=== PATIENT | female | born 1975 | race African-American/Black ===

== ENCOUNTER 2018-08-21 06:05 | Inpatient (IN) ==
[~2018-08-21 06:05] MED LIST: ALVIMOPAN 12 MG CAPSULE ONE; ERTAPENEM 1,000 MG VIAL ONE
[2018-08-21] MEDS ORDERED: LACTATED RINGERS 1,000 ML IV SCH (06:30)
[2018-08-21] MEDS ORDERED: FAMOTIDINE 20 MG TABLET ONE (06:41)
[2018-08-21] MEDS ORDERED: FAMOTIDINE 20 MG TABLET PO STA (06:42)
[2018-08-21] MEDS ORDERED: ALVIMOPAN 12 MG CAPSULE PO ONE (07:00)
[2018-08-21] MEDS ORDERED: TISSUE ADHESIVE 1 EACH APPLICATOR TOP ONE (07:51)
[2018-08-21] MEDS ORDERED: INDOCYANINE GREEN 25 MG VIAL IV ONE (07:51)
[2018-08-21] MEDS ORDERED: ERTAPENEM 1,000 MG in SODIUM CHLORIDE 0.9% 100 ML IV ONE (08:00)
[2018-08-21] MEDS ORDERED: ROPIVACAINE 0.5% 30 ML VIAL ONE (10:53)
[2018-08-21] MEDS ORDERED: SEVOFLURANE 1 UNIT/15 MINUTE INH ONE (11:30)
[2018-08-21] MEDS ORDERED: PROPOFOL 200 MG/20 ML VIAL IV ONE (11:30)
[2018-08-21] MEDS ORDERED: ONDANSETRON 4 MG/2 ML VIAL ONE ×2 (11:31→11:36)
[2018-08-21] MEDS ORDERED: MIDAZOLAM 2 MG/2 ML VIAL ONE (11:31)
[2018-08-21] MEDS ORDERED: ePHEDrine 50 MG/ML AMP ONE (11:31)
[2018-08-21] MEDS ORDERED: METOPROLOL TARTRATE 5 MG/5 ML VIAL IV ONE (11:31)
[2018-08-21] MEDS ORDERED: fentaNYL 100 MCG/2 ML VIAL ONE (11:31)
[2018-08-21] MEDS ORDERED: SUCCINYLCHOLINE 200 MG/10 ML VIAL ONE (11:32)
[2018-08-21] MEDS ORDERED: NEOSTIGMINE 10 MG/10 ML VIAL ONE (11:32)
[2018-08-21] MEDS ORDERED: GLYCOPYRROLATE 0.4 MG/2 ML VIAL ONE (11:32)
[2018-08-21] MEDS ORDERED: ROCURONIUM 100 MG/10 ML VIAL IV ONE (11:32)
[2018-08-21] MEDS ORDERED: LACTATED RINGERS 1,000 ML IV ONE (11:32)
[2018-08-21] MEDS ORDERED: ONDANSETRON 4 MG/2 ML VIAL IV PRN ×2 (11:33→12:13)
[2018-08-21] MEDS ORDERED: HYDROmorphone 2 MG/1 ML VIAL ONE (11:36)
[2018-08-21] MEDS: HYDROmorphone 2 MG/1 ML VIAL IV PRN ×3 (11:38→12:01)
[2018-08-21] MEDS ORDERED: GLUCAGON 1 MG VIAL IM PRN (12:13)
[2018-08-21] MEDS ORDERED: DEXTROSE 50% 25 GM/50 ML SYRINGE IV PRN (12:13)
[2018-08-21] MEDS ORDERED: PROMETHAZINE 25 MG/1 ML VIAL IM PRN (12:13)
[2018-08-21] MEDS ORDERED: HYDROmorphone 2 MG/1 ML VIAL IV PRN (12:13)
[2018-08-21] MEDS: LACTATED RINGERS 1,000 ML IV SCH ×2 (12:29→21:41)
[2018-08-21] MEDS: INSULIN REGULAR 100 UNIT/ML SUBCUT SCH ×3 (12:41→22:19)
[2018-08-21] MEDS ORDERED: KETOROLAC 15 MG/1 ML VIAL IV SCH (13:00)
[2018-08-21 13:02] LABS: Basophils % 0.1 % (0.0-0.8); Eosinophils # 0.1 10*3/uL (0.0-0.87); Eosinophils % 0.6 % (0.00-10.9); Hematocrit 28.8 VOL% (35.7-47.0); Hemoglobin 8.4 GM/DL (12.0-16.0); Immature Granulocytes % 0.7 %; Lymphocytes # 1.5 10*3/uL (1.4-4.0); Lymphocytes % 10.8 % (21.3-54.2); Mean Corpuscular HGB Conc 29.2 GM/DL (32-36); Mean Corpuscular Hemoglobin 24 PG (27-34); Mean Corpuscular Volume 81.6 FL (87-102); Mean Platelet Volume 11.2 FL (9.6-12.0); Monocytes # 0.6 10*3/uL (0.11-0.8); Monocytes % 4.2 % (1.7-12.7); Neutrophils # 11.8 10*3/uL (1.4-7.4); Neutrophils % 83.6 % (38.7-73.9); Platelet Count 332 T/CUMM (130-400); Red Blood Count 3.53 MC/CUMM (3.8-5.5); White Blood Count 14.1 T/CUMM (4-12)
[2018-08-21 13:22] LABS: Band Neutrophils 23 % (0-10); Eosinophils 1 % (0-10); Lymphocytes 12 % (20-55); Platelet Estimate Normal; Segmented Neutrophils 61 % (50-85); Total Cells Counted 100
[2018-08-21 13:23] LABS: Anisocytosis Slight
[2018-08-21 13:25] LABS: Calcium 8.5 MG/DL (8.5-10.1); Osmolality,Calculated 294.4 MOS/KG (273-304); Potassium 4.1 MMOL/L (3.5-5.1)
[2018-08-21] MEDS: GABAPENTIN 100 MG CAPSULE PO SCH ×2 (15:11→21:40)
[2018-08-21] MEDS: ALVIMOPAN 12 MG CAPSULE PO SCH (21:40)
[2018-08-22] MEDS ORDERED: ENOXAPARIN 40 MG/0.4 ML SYRINGE SUBCUT SCH (04:41)
[2018-08-22 05:10] LABS: Basophils % 0.2 % (0.0-0.8); Eosinophils # 0.3 10*3/uL (0.0-0.87); Eosinophils % 2.2 % (0.00-10.9); Hematocrit 23.9 VOL% (35.7-47.0); Hemoglobin 7.1 GM/DL (12.0-16.0); Immature Granulocytes % 1.1 %; Immature Granulocytes Absolute 0.13 #; Lymphocytes # 1.5 10*3/uL (1.4-4.0); Lymphocytes % 12.4 % (21.3-54.2); Mean Corpuscular HGB Conc 29.7 GM/DL (32-36); Mean Corpuscular Hemoglobin 24 PG (27-34); Mean Corpuscular Volume 81.6 FL (87-102); Monocytes # 1.1 10*3/uL (0.11-0.8); Neutrophils # 9.1 10*3/uL (1.4-7.4); Neutrophils % 75.1 % (38.7-73.9); Platelet Count 311 T/CUMM (130-400); Red Blood Count 2.93 MC/CUMM (3.8-5.5); Red Cell Distribution Width 15.8 % (9.3-17.3); White Blood Count 12.1 T/CUMM (4-12)
[2018-08-22 05:33] LABS: Calcium 8.2 MG/DL (8.5-10.1); Osmolality,Calculated 283.7 MOS/KG (273-304)
[2018-08-22] MEDS: LACTATED RINGERS 1,000 ML IV SCH (05:43)
[2018-08-22] MEDS ORDERED: MEPERIDINE 50 MG TABLET PO PRN ×3 (07:50→14:11)
[2018-08-22] MEDS ORDERED: DEXT 5% NACL 0.45% KCL 20 MEQ 20 MEQ/1,000 ML BAG IV SCH (09:00)
[2018-08-22] MEDS: INSULIN REGULAR 100 UNIT/ML SUBCUT SCH ×4 (09:02→21:56)
[2018-08-22] MEDS: HEPARIN 5,000 UNIT/1 ML VIAL SUBCUT SCH ×2 (09:04→17:46)
[2018-08-22] MEDS: ATORVASTATIN 20 MG TABLET PO SCH (09:05)
[2018-08-22] MEDS: ESTRADIOL 2 MG TABLET PO SCH (09:05)
[2018-08-22] MEDS: ALVIMOPAN 12 MG CAPSULE PO SCH ×2 (09:05→20:34)
[2018-08-22] MEDS: GABAPENTIN 100 MG CAPSULE PO SCH ×3 (09:06→20:34)
[2018-08-22] MEDS: PANTOPRAZOLE 40 MG TABLET PO SCH (09:06)
[2018-08-22 11:49] LABS: Hematocrit 23.8 VOL% (35.7-47.0); Hemoglobin 7.1 GM/DL (12.0-16.0)
[2018-08-22] MEDS: FERROUS SULFATE 325 MG TABLET PO SCH (20:34)
[2018-08-22] MEDS: LOSARTAN 25 MG TABLET PO SCH (20:34)
[2018-08-23] MEDS: HEPARIN 5,000 UNIT/1 ML VIAL SUBCUT SCH ×3 (00:46→17:07)
[2018-08-23 04:42] LABS: Basophils % 0.2 % (0.0-0.8); Eosinophils # 0.5 10*3/uL (0.0-0.87); Eosinophils % 3.8 % (0.00-10.9); Hematocrit 23.2 VOL% (35.7-47.0); Hemoglobin 6.8 GM/DL (12.0-16.0); Immature Granulocytes % 0.9 %; Immature Granulocytes Absolute 0.11 #; Lymphocytes # 1.8 10*3/uL (1.4-4.0); Lymphocytes % 15.1 % (21.3-54.2); Mean Corpuscular HGB Conc 29.3 GM/DL (32-36); Mean Corpuscular Hemoglobin 24 PG (27-34); Mean Corpuscular Volume 81.4 FL (87-102); Mean Platelet Volume 10.9 FL (9.6-12.0); Monocytes # 1.1 10*3/uL (0.11-0.8); Monocytes % 8.8 % (1.7-12.7); Neutrophils # 8.6 10*3/uL (1.4-7.4); Neutrophils % 71.2 % (38.7-73.9); Platelet Count 301 T/CUMM (130-400); Red Blood Count 2.85 MC/CUMM (3.8-5.5); Red Cell Distribution Width 15.9 % (9.3-17.3); White Blood Count 12.1 T/CUMM (4-12)
[2018-08-23 04:59] LABS: Calcium 7.9 MG/DL (8.5-10.1); Osmolality,Calculated 288.1 MOS/KG (273-304)
[2018-08-23] MEDS ORDERED: SODIUM CHLORIDE 0.9% 1,000 ML IV PRN (06:55)
[2018-08-23] MEDS: INSULIN REGULAR 100 UNIT/ML SUBCUT SCH ×3 (08:24→17:07)
[2018-08-23] MEDS: ESTRADIOL 2 MG TABLET PO SCH (09:07)
[2018-08-23] MEDS: ALVIMOPAN 12 MG CAPSULE PO SCH (09:07)
[2018-08-23] MEDS: LOSARTAN 25 MG TABLET PO SCH (09:07)
[2018-08-23] MEDS: FERROUS SULFATE 325 MG TABLET PO SCH (09:08)
[2018-08-23] MEDS: PANTOPRAZOLE 40 MG TABLET PO SCH (09:08)
[2018-08-23] MEDS: GABAPENTIN 100 MG CAPSULE PO SCH ×2 (09:08→15:14)
[2018-08-23] MEDS: ATORVASTATIN 20 MG TABLET PO SCH (09:08)
[2018-08-23 16:49] LABS: Hemoglobin 8.1 GM/DL (12.0-16.0)
[2018-08-23 19:24] VITALS: BP 146/78
== END 2018-08-23 19:17 | disposition home or self-care (01) | DRG 331 ==
LOC: N.OR 06:05 → N.SDSINP 06:06 → N.3E 10:40
PROVIDERS: ADMIT Surgery; ATTEND Surgery

== ENCOUNTER 2021-05-12 10:42 | Inpatient (IN) ==
[2021-05-12 16:24] LABS: Basophils % 0.2 % (0.0-0.8); Eosinophils # 0.2 10*3/uL (0.0-0.87); Eosinophils % 2.4 % (0.00-10.9); Hematocrit 27.7 VOL% (35.7-47.0); Hemoglobin 8.2 GM/DL (12.0-16.0); Immature Granulocytes % 0.6 %; Immature Granulocytes Absolute 0.06 #; Lymphocytes # 2.2 10*3/uL (1.4-4.0); Lymphocytes % 22.8 % (21.3-54.2); Mean Corpuscular HGB Conc 29.6 GM/DL (32-36); Mean Corpuscular Volume 91.4 FL (87-102); Mean Platelet Volume 11.1 FL (9.6-12.0); Platelet Count 242 T/CUMM (130-400); Red Blood Count 3.03 MC/CUMM (3.8-5.5); Red Cell Distribution Width 14.1 % (9.3-17.3); White Blood Count 9.6 T/CUMM (4-12)
[2021-05-12 16:47] LABS: Alanine Aminotransferase 18 U/L (13-56); Albumin 2.8 G/DL (3.4-5.0); Alkaline Phosphatase 176 U/L (45-117); Aspartate Amino Transferase 18 U/L (0-37); Bilirubin,Total < 0.39 MG/DL (0.20-1.00); Blood Urea Nitrogen 67 MG/DL (7-18); Calcium 6.6 MG/DL (8.5-10.1); Carbon Dioxide 16 MMOL/L (21-32); Estimated Glom Filtration Rate 31 ML/MIN; Glucose 97 MG/DL (74-106); Osmolality,Calculated 301.1 MOS/KG (273-304); Potassium 4.6 MMOL/L (3.5-5.1); Sodium 142 MMOL/L (136-145); Total Protein 7.7 G/DL (6.4-8.2)
[2021-05-12] MEDS ORDERED: hydrALAZINE 20 MG/1 ML VIAL IV STA (17:00)
[2021-05-12] MEDS ORDERED: SODIUM CHLORIDE 0.9% 1,000 ML IV STA (17:02)
[2021-05-12 18:00] LABS: Bacteria,Urine Occasional /HPF (Few); Bilirubin,Urine Negative (Negative); Blood, Urine Small mg/dL (Negative); Glucose,Urine (UA) 50 mg/dL (Negative); Ketones,Urine Negative (Negative); Nitrite,Urine Negative (Negative); Protein,Urine >=500 MG/DL; RBC,Urine 3 /HPF (0-4); Squamous Epithelial Cell,Urine Occasional /HPF (0-10); Urine Appearance CLEAR (Clear); Urine Color Straw (Yellow); Urine Specific Gravity 1.011 (1.001-1.035); Urine Urobilinogen < 2.0 EU/DL (0.2-1.0)
[2021-05-12] MEDS ORDERED: DEXTROSE 50% 25 GM/50 ML SYRINGE IV PRN (21:38)
[2021-05-12] MEDS ORDERED: GLUCAGON 1 MG VIAL IM PRN (21:38)
[2021-05-12] MEDS ORDERED: ACETAMINOPHEN 325 MG TABLET PO PRN (21:42)
[2021-05-12] MEDS ORDERED: hydrALAZINE 20 MG/1 ML VIAL IV PRN (21:42)
[2021-05-12] MEDS: amLODIPine 10 MG TABLET PO SCH (23:10)
[2021-05-13] MEDS ORDERED: hydrALAZINE 20 MG/1 ML VIAL IV PRN (00:04)
[2021-05-13] MEDS: SODIUM CHLORIDE 0.45% 1,000 ML IV SCH ×2 (00:45→10:54)
[2021-05-13 01:02] LABS: % Iron Saturation 15.2 % (18-50); Ferritin 48.5 ng/mL (8-252)
[2021-05-13 01:11] LABS: Basophils % 0.2 % (0.0-0.8); Eosinophils # 0.2 10*3/uL (0.0-0.87); Eosinophils % 2.2 % (0.00-10.9); Immature Granulocytes % 0.4 %; Immature Granulocytes Absolute 0.04 #; Lymphocytes # 2.2 10*3/uL (1.4-4.0); Lymphocytes % 21.2 % (21.3-54.2); Mean Corpuscular HGB Conc 29.6 GM/DL (32-36); Mean Corpuscular Volume 91.5 FL (87-102); Mean Platelet Volume 11.4 FL (9.6-12.0); Monocytes % 5.8 % (1.7-12.7); Neutrophils % 70.2 % (38.7-73.9); Platelet Count 240 T/CUMM (130-400); Red Blood Count 2.95 MC/CUMM (3.8-5.5); Red Cell Distribution Width 14.2 % (9.3-17.3); White Blood Count 10.3 T/CUMM (4-12)
[2021-05-13 01:22] LABS: PT Patient Result 10.9 SECS (10.5-12.0); Partial Thromboplastin Time 25.6 SECS (23.8-32.1)
[2021-05-13 01:42] LABS: Calcium 6.7 MG/DL (8.5-10.1); Potassium 4.2 MMOL/L (3.5-5.1); Risk Ratio 5.78; Thyroid Stimulating Hormone 2.27 uIU/ml (0.358-3.74); VLDL Cholesterol 47.2 MG/DL
[2021-05-13 02:16] LABS: Sedimentation Rate-Westergren 123 MM/HR (0-20)
[2021-05-13] MEDS ORDERED: MAGNESIUM SULF RIDER 2 GM/50 ML PREMIX IV PRN (02:50)
[2021-05-13] MEDS ORDERED: MAGNESIUM SULF RIDER 4 GM/100 ML PREMIX IV PRN (02:50)
[2021-05-13 03:01] LABS: Folate 9.74 NG/ML (5.38-24.0); Vitamin B12 464 PG/ML (211-911)
[2021-05-13] MEDS: INSULIN REGULAR 100 UNIT/ML SUBCUT SCH ×4 (10:15→20:20)
[2021-05-13] MEDS: SODIUM BICARB INJ 50 MEQ in SODIUM CHLORIDE 0.45% 1,000 ML IV SCH ×2 (10:15→18:43)
[2021-05-13] MEDS: amLODIPine 10 MG TABLET PO SCH (10:16)
[2021-05-13] MEDS: SODIUM BICARBONATE 650 MG TABLET PO SCH ×3 (10:16→20:20)
[2021-05-13] MEDS: DOCUSATE SODIUM 100 MG CAPSULE PO SCH ×2 (10:16→20:20)
[2021-05-13] MEDS: PANTOPRAZOLE 40 MG TABLET PO SCH (10:16)
[2021-05-13] MEDS: ATORVASTATIN 20 MG TABLET PO SCH (10:18)
[2021-05-13] MEDS ORDERED: DEXTROSE 50% 25 GM/50 ML SYRINGE IV PRN (16:04)
[2021-05-13] MEDS: carvediloL 6.25 MG TABLET PO SCH (16:24)
[2021-05-13] MEDS: FERROUS SULFATE 325 MG TABLET PO SCH (16:24)
[2021-05-14] MEDS: SODIUM BICARB INJ 50 MEQ in SODIUM CHLORIDE 0.45% 1,000 ML IV SCH ×6 (00:04→21:09)
[2021-05-14 05:38] LABS: Albumin 2.3 G/DL (3.4-5.0); Bilirubin,Total 0.7 MG/DL (0.20-1.00); Calcium 7.1 MG/DL (8.5-10.1); Osmolality,Calculated 303.7 MOS/KG (273-304); Potassium 4.8 MMOL/L (3.5-5.1); Total Protein 6.4 G/DL (6.4-8.2)
[2021-05-14 07:57] LABS: Basophils % 0.2 % (0.0-0.8); Eosinophils # 0.3 10*3/uL (0.0-0.87); Eosinophils % 2.6 % (0.00-10.9); Hematocrit 24.5 VOL% (35.7-47.0); Hemoglobin 7.4 GM/DL (12.0-16.0); Immature Granulocytes % 0.5 %; Immature Granulocytes Absolute 0.05 #; Lymphocytes # 1.7 10*3/uL (1.4-4.0); Lymphocytes % 15.8 % (21.3-54.2); Mean Corpuscular HGB Conc 30.2 GM/DL (32-36); Mean Corpuscular Volume 91.4 FL (87-102); Mean Platelet Volume 12.5 FL (9.6-12.0); Monocytes % 5.5 % (1.7-12.7); Neutrophils % 75.4 % (38.7-73.9); Platelet Count 229 T/CUMM (130-400); Red Blood Count 2.68 MC/CUMM (3.8-5.5); Red Cell Distribution Width 14.1 % (9.3-17.3); White Blood Count 10.6 T/CUMM (4-12)
[2021-05-14] MEDS: SODIUM BICARBONATE 650 MG TABLET PO SCH ×3 (08:33→21:10)
[2021-05-14] MEDS: ASPIRIN CHEW 81 MG TABLET PO SCH (08:33)
[2021-05-14] MEDS: PANTOPRAZOLE 40 MG TABLET PO SCH (08:33)
[2021-05-14] MEDS: carvediloL 6.25 MG TABLET PO SCH ×2 (08:33→16:09)
[2021-05-14] MEDS: amLODIPine 10 MG TABLET PO SCH (08:33)
[2021-05-14] MEDS: DOCUSATE SODIUM 100 MG CAPSULE PO SCH ×2 (08:33→21:10)
[2021-05-14] MEDS: FERROUS SULFATE 325 MG TABLET PO SCH ×2 (08:33→16:09)
[2021-05-14] MEDS: ATORVASTATIN 20 MG TABLET PO SCH (08:33)
[2021-05-14 08:59] LABS: Hemoglobin A1 (Alkaline) 98.4 % (96.5-98.5); Hemoglobin A2 (Alkaline) 1.6 % (1.5-3.5)
[2021-05-14] MEDS: INSULIN REGULAR 100 UNIT/ML SUBCUT SCH ×4 (09:22→20:11)
[2021-05-14] MEDS: CHOLECALCIFEROL 1,000 UNIT TABLET PO SCH (21:10)
[2021-05-15] MEDS: ONDANSETRON 4 MG/2 ML VIAL IV PRN ×2 (00:30→08:32)
[2021-05-15] MEDS: SODIUM BICARB INJ 50 MEQ in SODIUM CHLORIDE 0.45% 1,000 ML IV SCH (05:23)
[2021-05-15] MEDS: CHOLECALCIFEROL 1,000 UNIT TABLET PO SCH ×2 (08:26→21:50)
[2021-05-15] MEDS: SODIUM BICARBONATE 650 MG TABLET PO SCH ×3 (08:26→21:50)
[2021-05-15] MEDS: PANTOPRAZOLE 40 MG TABLET PO SCH (08:27)
[2021-05-15] MEDS: FERROUS SULFATE 325 MG TABLET PO SCH ×2 (08:27→17:04)
[2021-05-15] MEDS: ATORVASTATIN 20 MG TABLET PO SCH (08:27)
[2021-05-15] MEDS: DOCUSATE SODIUM 100 MG CAPSULE PO SCH ×2 (08:27→21:49)
[2021-05-15] MEDS: carvediloL 6.25 MG TABLET PO SCH ×2 (08:27→17:04)
[2021-05-15] MEDS: amLODIPine 10 MG TABLET PO SCH (08:27)
[2021-05-15] MEDS: ASPIRIN CHEW 81 MG TABLET PO SCH (08:27)
[2021-05-15 08:55] LABS: Basophils % 0.2 % (0.0-0.8); Eosinophils # 0.3 10*3/uL (0.0-0.87); Eosinophils % 3.1 % (0.00-10.9); Immature Granulocytes % 0.8 %; Immature Granulocytes Absolute 0.07 #; Lymphocytes # 1.8 10*3/uL (1.4-4.0); Lymphocytes % 19.2 % (21.3-54.2); Mean Corpuscular HGB Conc 30.4 GM/DL (32-36); Mean Corpuscular Volume 89.5 FL (87-102); Mean Platelet Volume 11.2 FL (9.6-12.0); Monocytes % 7.4 % (1.7-12.7); Neutrophils % 69.3 % (38.7-73.9); Platelet Count 199 T/CUMM (130-400); Red Blood Count 2.57 MC/CUMM (3.8-5.5); Red Cell Distribution Width 13.8 % (9.3-17.3); White Blood Count 9.2 T/CUMM (4-12)
[2021-05-15] MEDS: INSULIN REGULAR 100 UNIT/ML SUBCUT SCH ×4 (08:55→21:48)
[2021-05-15 09:20] LABS: Calcium 7.1 MG/DL (8.5-10.1); Osmolality,Calculated 307.8 MOS/KG (273-304); Potassium 4.5 MMOL/L (3.5-5.1)
[2021-05-15] MEDS: SODIUM BICARB INJ 100 MEQ in DEXTROSE 5% 1,000 ML IV SCH ×3 (11:52→20:11)
[2021-05-15 13:58] LABS: Hematocrit 25.2 VOL% (35.7-47.0); Hemoglobin 7.7 GM/DL (12.0-16.0)
[2021-05-15] MEDS: DARBEPOETIN ALFA 40 MCG/ML VIAL SUBCUT SCH (21:47)
[2021-05-16 13:19] LABS: Basophils % 0.2 % (0.0-0.8); Eosinophils # 0.2 10*3/uL (0.0-0.87); Eosinophils % 2.3 % (0.00-10.9); Hematocrit 21.4 VOL% (35.7-47.0); Hemoglobin 6.7 GM/DL (12.0-16.0); Immature Granulocytes % 0.7 %; Immature Granulocytes Absolute 0.07 #; Lymphocytes # 1.6 10*3/uL (1.4-4.0); Lymphocytes % 15.9 % (21.3-54.2); Mean Corpuscular HGB Conc 31.3 GM/DL (32-36); Mean Corpuscular Volume 88.4 FL (87-102); Mean Platelet Volume 12.1 FL (9.6-12.0); Monocytes % 7.6 % (1.7-12.7); Neutrophils % 73.3 % (38.7-73.9); Platelet Count 200 T/CUMM (130-400); Red Blood Count 2.42 MC/CUMM (3.8-5.5); Red Cell Distribution Width 13.8 % (9.3-17.3); White Blood Count 10.2 T/CUMM (4-12)
[2021-05-16] MEDS: SODIUM BICARB INJ 100 MEQ in DEXTROSE 5% 1,000 ML IV SCH ×2 (13:42→23:45)
[2021-05-16] MEDS: INSULIN REGULAR 100 UNIT/ML SUBCUT SCH ×4 (13:42→21:48)
[2021-05-16] MEDS: carvediloL 6.25 MG TABLET PO SCH ×2 (13:43→16:25)
[2021-05-16] MEDS: FERROUS SULFATE 325 MG TABLET PO SCH ×2 (13:43→16:26)
[2021-05-16] MEDS: DOCUSATE SODIUM 100 MG CAPSULE PO SCH ×2 (13:43→21:48)
[2021-05-16] MEDS: ASPIRIN CHEW 81 MG TABLET PO SCH (13:43)
[2021-05-16] MEDS: ATORVASTATIN 20 MG TABLET PO SCH (13:44)
[2021-05-16] MEDS: PANTOPRAZOLE 40 MG TABLET PO SCH (13:45)
[2021-05-16] MEDS: amLODIPine 10 MG TABLET PO SCH (13:45)
[2021-05-16] MEDS ORDERED: SODIUM CHLORIDE 0.9% 1,000 ML IV PRN (13:46)
[2021-05-16] MEDS: CHOLECALCIFEROL 1,000 UNIT TABLET PO SCH ×2 (13:47→21:44)
[2021-05-16] MEDS: SODIUM BICARBONATE 650 MG TABLET PO SCH ×3 (13:47→21:48)
[2021-05-16 14:02] LABS: Osmolality,Calculated 301.5 MOS/KG (273-304); Potassium 4.2 MMOL/L (3.5-5.1)
[2021-05-17 06:02] LABS: Basophils % 0.3 % (0.0-0.8); Eosinophils # 0.3 10*3/uL (0.0-0.87); Eosinophils % 2.2 % (0.00-10.9); Hematocrit 25.7 VOL% (35.7-47.0); Hemoglobin 8.1 GM/DL (12.0-16.0); Immature Granulocytes % 0.7 %; Immature Granulocytes Absolute 0.08 #; Lymphocytes # 1.8 10*3/uL (1.4-4.0); Lymphocytes % 15.1 % (21.3-54.2); Mean Corpuscular HGB Conc 31.5 GM/DL (32-36); Mean Corpuscular Volume 90.2 FL (87-102); Mean Platelet Volume 11.6 FL (9.6-12.0); Monocytes % 7.5 % (1.7-12.7); Neutrophils % 74.2 % (38.7-73.9); Platelet Count 199 T/CUMM (130-400); Red Blood Count 2.85 MC/CUMM (3.8-5.5); Red Cell Distribution Width 13.6 % (9.3-17.3); White Blood Count 11.9 T/CUMM (4-12)
[2021-05-17 06:34] LABS: Osmolality,Calculated 312.4 MOS/KG (273-304); Potassium 4.6 MMOL/L (3.5-5.1)
[2021-05-17 07:33] LABS: Protein/Creatinine Ratio,Urine 6.4 RATIO
[2021-05-17] MEDS: SODIUM BICARB INJ 100 MEQ in DEXTROSE 5% 1,000 ML IV SCH (07:37)
[2021-05-17] MEDS: INSULIN REGULAR 100 UNIT/ML SUBCUT SCH ×4 (10:05→21:02)
[2021-05-17] MEDS: ASPIRIN CHEW 81 MG TABLET PO SCH (10:05)
[2021-05-17] MEDS: DOCUSATE SODIUM 100 MG CAPSULE PO SCH ×2 (10:05→21:09)
[2021-05-17] MEDS: amLODIPine 10 MG TABLET PO SCH (10:05)
[2021-05-17] MEDS: SODIUM BICARBONATE 650 MG TABLET PO SCH ×3 (10:06→21:09)
[2021-05-17] MEDS: ATORVASTATIN 20 MG TABLET PO SCH (10:06)
[2021-05-17] MEDS: calcitrioL 0.25 MCG CAPSULE PO SCH (10:06)
[2021-05-17] MEDS: FERROUS SULFATE 325 MG TABLET PO SCH ×2 (10:06→17:02)
[2021-05-17] MEDS: carvediloL 6.25 MG TABLET PO SCH ×2 (10:06→17:02)
[2021-05-17] MEDS: PANTOPRAZOLE 40 MG TABLET PO SCH (10:06)
[2021-05-17] MEDS: SODIUM CHLORIDE 0.45% 1,000 ML IV SCH (12:51)
[2021-05-17] MEDS: ONDANSETRON 4 MG/2 ML VIAL IV PRN (13:25)
[2021-05-18] MEDS: SODIUM CHLORIDE 0.45% 1,000 ML IV SCH (05:14)
[2021-05-18 08:28] LABS: Basophils % 0.2 % (0.0-0.8); Eosinophils # 0.4 10*3/uL (0.0-0.87); Eosinophils % 2.8 % (0.00-10.9); Hematocrit 24.8 VOL% (35.7-47.0); Hemoglobin 7.8 GM/DL (12.0-16.0); Immature Granulocytes % 0.9 %; Immature Granulocytes Absolute 0.11 #; Lymphocytes # 2.3 10*3/uL (1.4-4.0); Lymphocytes % 18.1 % (21.3-54.2); Mean Corpuscular HGB Conc 31.5 GM/DL (32-36); Mean Corpuscular Volume 89.9 FL (87-102); Mean Platelet Volume 11.6 FL (9.6-12.0); Monocytes % 7.1 % (1.7-12.7); Neutrophils % 70.9 % (38.7-73.9); Platelet Count 189 T/CUMM (130-400); Red Blood Count 2.76 MC/CUMM (3.8-5.5); Red Cell Distribution Width 13.5 % (9.3-17.3); White Blood Count 12.6 T/CUMM (4-12)
[2021-05-18 08:53] LABS: Calcium 7.4 MG/DL (8.5-10.1); Osmolality,Calculated 305.1 MOS/KG (273-304)
[2021-05-18] MEDS: FERROUS SULFATE 325 MG TABLET PO SCH ×2 (10:22→16:35)
[2021-05-18] MEDS: INSULIN REGULAR 100 UNIT/ML SUBCUT SCH ×4 (10:22→20:55)
[2021-05-18] MEDS: ASPIRIN CHEW 81 MG TABLET PO SCH (10:22)
[2021-05-18] MEDS: calcitrioL 0.25 MCG CAPSULE PO SCH (10:23)
[2021-05-18] MEDS: amLODIPine 10 MG TABLET PO SCH (10:23)
[2021-05-18] MEDS: PANTOPRAZOLE 40 MG TABLET PO SCH (10:23)
[2021-05-18] MEDS: ATORVASTATIN 20 MG TABLET PO SCH (10:23)
[2021-05-18] MEDS: carvediloL 6.25 MG TABLET PO SCH ×2 (10:23→16:35)
[2021-05-18] MEDS: DOCUSATE SODIUM 100 MG CAPSULE PO SCH ×2 (10:24→21:00)
[2021-05-19] MEDS: SODIUM CHLORIDE 0.45% 1,000 ML IV SCH (01:06)
[2021-05-19 06:06] LABS: Basophils % 0.2 % (0.0-0.8); Eosinophils # 0.4 10*3/uL (0.0-0.87); Eosinophils % 3.2 % (0.00-10.9); Hematocrit 27.9 VOL% (35.7-47.0); Hemoglobin 8.6 GM/DL (12.0-16.0); Immature Granulocytes % 0.8 %; Immature Granulocytes Absolute 0.11 #; Lymphocytes # 2.1 10*3/uL (1.4-4.0); Lymphocytes % 16.2 % (21.3-54.2); Mean Corpuscular HGB Conc 30.8 GM/DL (32-36); Mean Corpuscular Volume 91.2 FL (87-102); Mean Platelet Volume 11.4 FL (9.6-12.0); Monocytes % 6.3 % (1.7-12.7); Neutrophils % 73.3 % (38.7-73.9); Platelet Count 213 T/CUMM (130-400); Red Blood Count 3.06 MC/CUMM (3.8-5.5); Red Cell Distribution Width 13.4 % (9.3-17.3); White Blood Count 13.2 T/CUMM (4-12)
[2021-05-19 06:29] LABS: Calcium 7.8 MG/DL (8.5-10.1); Osmolality,Calculated 300.5 MOS/KG (273-304); Potassium 4.8 MMOL/L (3.5-5.1)
[2021-05-19] MEDS: FERROUS SULFATE 325 MG TABLET PO SCH ×2 (08:48→16:31)
[2021-05-19] MEDS: amLODIPine 10 MG TABLET PO SCH (08:49)
[2021-05-19] MEDS: DOCUSATE SODIUM 100 MG CAPSULE PO SCH ×2 (08:49→21:25)
[2021-05-19] MEDS: ATORVASTATIN 20 MG TABLET PO SCH (08:49)
[2021-05-19] MEDS: carvediloL 6.25 MG TABLET PO SCH ×2 (08:49→16:31)
[2021-05-19] MEDS: PANTOPRAZOLE 40 MG TABLET PO SCH (08:49)
[2021-05-19] MEDS: ASPIRIN CHEW 81 MG TABLET PO SCH (08:49)
[2021-05-19] MEDS: calcitrioL 0.25 MCG CAPSULE PO SCH (08:49)
[2021-05-19] MEDS: INSULIN REGULAR 100 UNIT/ML SUBCUT SCH ×4 (09:13→21:26)
[2021-05-19 16:00] LABS: Hepatitis B Core IgM Quant 0.14 Index; Hepatitis B Surface Ag Quant < 0.10 Index; Hepatitis B Surface Ag Result Non-Reactive (NonReactive); Hepatitis C Virus Ab Quant < 0.02 Index; Hepatitis C Virus Ab Result Non-Reactive (NonReactive)
[2021-05-20 06:40] LABS: Basophils % 0.3 % (0.0-0.8); Eosinophils # 0.4 10*3/uL (0.0-0.87); Eosinophils % 3.2 % (0.00-10.9); Hematocrit 25.1 VOL% (35.7-47.0); Hemoglobin 7.9 GM/DL (12.0-16.0); Immature Granulocytes Absolute 0.12 #; Lymphocytes % 17.1 % (21.3-54.2); Mean Corpuscular HGB Conc 31.5 GM/DL (32-36); Mean Platelet Volume 11.6 FL (9.6-12.0); Monocytes % 7.9 % (1.7-12.7); Neutrophils % 70.5 % (38.7-73.9); Platelet Count 208 T/CUMM (130-400); Red Blood Count 2.79 MC/CUMM (3.8-5.5); Red Cell Distribution Width 13.4 % (9.3-17.3)
[2021-05-20 07:05] LABS: Calcium 7.6 MG/DL (8.5-10.1); Osmolality,Calculated 298.5 MOS/KG (273-304); Potassium 4.9 MMOL/L (3.5-5.1)
[2021-05-20] MEDS: INSULIN REGULAR 100 UNIT/ML SUBCUT SCH ×4 (08:54→20:28)
[2021-05-20] MEDS: carvediloL 6.25 MG TABLET PO SCH ×2 (08:56→16:34)
[2021-05-20] MEDS: ATORVASTATIN 20 MG TABLET PO SCH (08:57)
[2021-05-20] MEDS: ASPIRIN CHEW 81 MG TABLET PO SCH (08:57)
[2021-05-20] MEDS: amLODIPine 10 MG TABLET PO SCH (08:57)
[2021-05-20] MEDS: FERROUS SULFATE 325 MG TABLET PO SCH ×2 (08:57→16:34)
[2021-05-20] MEDS: calcitrioL 0.25 MCG CAPSULE PO SCH (08:57)
[2021-05-20] MEDS: PANTOPRAZOLE 40 MG TABLET PO SCH (08:57)
[2021-05-20] MEDS: DOCUSATE SODIUM 100 MG CAPSULE PO SCH ×2 (08:57→20:27)
[2021-05-20] MEDS ORDERED: LIDOCAINE 1%/EPI INJ 20 ML VIAL ONE (11:42)
[2021-05-20] MEDS ORDERED: HEPARIN 5,000 UNIT/1 ML VIAL ONE (11:42)
[2021-05-20] MEDS ORDERED: BUPIVACAINE MPF 0.25% 30 ML VIAL ONE (11:42)
[2021-05-20] MEDS ORDERED: SODIUM CHLORIDE 0.9% 250 ML IV SCH (12:00)
[2021-05-20] MEDS ORDERED: MIDAZOLAM 2 MG/2 ML VIAL ONE ×2 (12:10→12:19)
[2021-05-20] MEDS ORDERED: ceFAZolin 1,000 MG VIAL ONE (12:32)
[2021-05-20] MEDS ORDERED: GLYCOPYRROLATE 0.4 MG/2 ML VIAL ONE (12:45)
[2021-05-20] MEDS ORDERED: propofoL 200 MG/20 ML VIAL IV ONE (12:45)
[2021-05-20] MEDS ORDERED: HEPARIN 10,000 UNIT/10 ML VIAL IV ONE (15:15)
[2021-05-21 07:35] LABS: Osmolality,Calculated 294.1 MOS/KG (273-304); Potassium 4.8 MMOL/L (3.5-5.1)
[2021-05-21] MEDS: ASPIRIN CHEW 81 MG TABLET PO SCH (10:40)
[2021-05-21] MEDS: amLODIPine 10 MG TABLET PO SCH (10:40)
[2021-05-21] MEDS: INSULIN GLARGINE 100 UNIT/ML SUBCUT SCH (10:40)
[2021-05-21] MEDS: FERROUS SULFATE 325 MG TABLET PO SCH ×2 (10:41→18:01)
[2021-05-21] MEDS: ATORVASTATIN 20 MG TABLET PO SCH (10:41)
[2021-05-21] MEDS: DOCUSATE SODIUM 100 MG CAPSULE PO SCH ×2 (10:41→20:37)
[2021-05-21] MEDS: PANTOPRAZOLE 40 MG TABLET PO SCH (10:41)
[2021-05-21] MEDS: calcitrioL 0.25 MCG CAPSULE PO SCH (10:42)
[2021-05-21] MEDS: carvediloL 6.25 MG TABLET PO SCH ×2 (10:42→18:01)
[2021-05-21] MEDS: INSULIN REGULAR 100 UNIT/ML SUBCUT SCH (11:09)
[2021-05-21] MEDS ORDERED: HEPARIN 10,000 UNIT/10 ML VIAL IV ONE (15:30)
[2021-05-21] MEDS: INSULIN LISPRO 100 UNIT/ML SUBCUT SCH ×3 (15:48→20:38)
[2021-05-22 07:53] LABS: Basophils % 0.3 % (0.0-0.8); Eosinophils # 0.3 10*3/uL (0.0-0.87); Hematocrit 27.1 VOL% (35.7-47.0); Hemoglobin 8.4 GM/DL (12.0-16.0); Immature Granulocytes % 0.7 %; Immature Granulocytes Absolute 0.08 #; Lymphocytes # 1.8 10*3/uL (1.4-4.0); Lymphocytes % 16.1 % (21.3-54.2); Mean Corpuscular Volume 89.1 FL (87-102); Monocytes % 9.3 % (1.7-12.7); Neutrophils % 70.6 % (38.7-73.9); Platelet Count 187 T/CUMM (130-400); Red Blood Count 3.04 MC/CUMM (3.8-5.5); Red Cell Distribution Width 13.2 % (9.3-17.3); White Blood Count 11.2 T/CUMM (4-12)
[2021-05-22 08:12] LABS: Calcium 8.4 MG/DL (8.5-10.1); Osmolality,Calculated 286.5 MOS/KG (273-304); Potassium 4.1 MMOL/L (3.5-5.1)
[2021-05-22] MEDS: INSULIN GLARGINE 100 UNIT/ML SUBCUT SCH (08:18)
[2021-05-22] MEDS: INSULIN LISPRO 100 UNIT/ML SUBCUT SCH ×4 (08:18→20:24)
[2021-05-22] MEDS: FERROUS SULFATE 325 MG TABLET PO SCH ×2 (08:26→17:35)
[2021-05-22] MEDS: carvediloL 6.25 MG TABLET PO SCH ×2 (08:26→17:34)
[2021-05-22] MEDS ORDERED: HEPARIN 10,000 UNIT/10 ML VIAL IV ONE (10:00)
[2021-05-22] MEDS: ASPIRIN CHEW 81 MG TABLET PO SCH ×2 (10:07→15:00)
[2021-05-22] MEDS: DARBEPOETIN ALFA 40 MCG/ML VIAL SUBCUT SCH (10:07)
[2021-05-22] MEDS: PANTOPRAZOLE 40 MG TABLET PO SCH ×2 (10:08→15:01)
[2021-05-22] MEDS: amLODIPine 10 MG TABLET PO SCH ×2 (10:08→15:01)
[2021-05-22] MEDS: DOCUSATE SODIUM 100 MG CAPSULE PO SCH ×3 (10:08→20:23)
[2021-05-22] MEDS: ATORVASTATIN 20 MG TABLET PO SCH ×2 (10:08→15:01)
[2021-05-22] MEDS: calcitrioL 0.25 MCG CAPSULE PO SCH ×2 (10:09→15:01)
[2021-05-22] MEDS: ONDANSETRON 4 MG/2 ML VIAL IV PRN (13:00)
[2021-05-23 05:46] LABS: Basophils % 0.2 % (0.0-0.8); Eosinophils # 0.3 10*3/uL (0.0-0.87); Eosinophils % 2.1 % (0.00-10.9); Hematocrit 29.9 VOL% (35.7-47.0); Hemoglobin 9.2 GM/DL (12.0-16.0); Immature Granulocytes % 0.9 %; Immature Granulocytes Absolute 0.13 #; Lymphocytes # 2.1 10*3/uL (1.4-4.0); Mean Corpuscular HGB Conc 30.8 GM/DL (32-36); Mean Corpuscular Volume 91.2 FL (87-102); Mean Platelet Volume 11.7 FL (9.6-12.0); Monocytes % 8.5 % (1.7-12.7); Neutrophils % 73.3 % (38.7-73.9); Platelet Count 227 T/CUMM (130-400); Red Blood Count 3.28 MC/CUMM (3.8-5.5); Red Cell Distribution Width 13.2 % (9.3-17.3)
[2021-05-23 06:30] LABS: Calcium 8.2 MG/DL (8.5-10.1); Osmolality,Calculated 287.5 MOS/KG (273-304); Potassium 4.2 MMOL/L (3.5-5.1)
[2021-05-23 08:30] VITALS: BP 139/79
[2021-05-23] MEDS: INSULIN GLARGINE 100 UNIT/ML SUBCUT SCH (10:07)
[2021-05-23] MEDS: calcitrioL 0.25 MCG CAPSULE PO SCH (10:08)
[2021-05-23] MEDS: INSULIN LISPRO 100 UNIT/ML SUBCUT SCH (10:08)
[2021-05-23] MEDS: ATORVASTATIN 20 MG TABLET PO SCH (10:09)
[2021-05-23] MEDS: ASPIRIN CHEW 81 MG TABLET PO SCH (10:09)
[2021-05-23] MEDS: amLODIPine 10 MG TABLET PO SCH (10:09)
[2021-05-23] MEDS: carvediloL 6.25 MG TABLET PO SCH (10:09)
[2021-05-23] MEDS: DOCUSATE SODIUM 100 MG CAPSULE PO SCH (10:10)
[2021-05-23] MEDS: FERROUS SULFATE 325 MG TABLET PO SCH (10:10)
[2021-05-23] MEDS: PANTOPRAZOLE 40 MG TABLET PO SCH (10:11)
== END 2021-05-23 12:14 | disposition home or self-care (01) | DRG 674 ==
LOC: N.ED 10:42 → N.EDINP 21:38 → SUATTDRO 21:38 → N.TELEN 23:55
PROVIDERS: ADMIT Internal Medicine; ATTEND Internal Medicine